=== PATIENT | male | born 1955 | race Caucasian/White ===

== ENCOUNTER 2021-02-14 12:04 | Inpatient (IN) | payer MEDICARE, OTHER ==
[2021-02-14 18:26] VITALS: BMI 28.2
[2021-02-14 20:13] LABS: Anion Gap 12 mmol/L (10-20); BUN (Urea Nitrogen) 14 mg/dL (8.4-25.7); Calc. Creatinine Clearance 107 mL/min (70-130); Calcium 8.7 mg/dL (7.8-10.44); Carbon Dioxide 24 mmol/L (23-31); Chloride 90 mmol/L (98-107); Glucose 162 mg/dL (80-115); Potassium 3.9 mmol/L (3.5-5.1); Sodium 122 mmol/L (136-145)
[2021-02-14] MEDS ORDERED: Ondansetron ODT 4 MG TAB PO PRN (23:09)
[2021-02-14] MEDS ORDERED: Acetaminophen 650 MG Suppository PR PRN (23:09)
[2021-02-14] MEDS ORDERED: Ondansetron PF 4 MG/2 ML Vial IVP PRN (23:09)
[2021-02-14] MEDS ORDERED: Acetaminophen 325 MG TAB PO PRN (23:09)
[2021-02-14] MEDS ORDERED: Enoxaparin Sodium 40 MG/0.4 ML SYRINGE SC SCH (23:59)
[2021-02-15 01:35] LABS: Lactic Acid 1.3 mmol/L (0.5-2.2)
[2021-02-15 01:38] LABS: Anion Gap 12 mmol/L (10-20); BUN (Urea Nitrogen) 17 mg/dL (8.4-25.7); Calc. Creatinine Clearance 112 mL/min (70-130); Carbon Dioxide 22 mmol/L (23-31); Chloride 89 mmol/L (98-107); Glucose 134 mg/dL (80-115)
[2021-02-15 01:48] LABS: Sodium 119 mmol/L (136-145)
[2021-02-15 05:19] LABS: #Eosinphils 0.1 thou/uL (0.0-0.7); #Monocytes 1.1 thou/uL (0.11-0.59); #Neutrophils 8.3 thou/uL (1.40-6.50); %Basophils 0.1 % (0.0-1.0); %Eosinophils 0.7 % (0.0-10.0); %Lymphocytes 9.8 % (21.0-51.0); %Neutrophils 79.4 % (42.0-75.0); Hemoglobin 15.6 g/dL (14.0-18.0); Mean Corpuscular HGB CONC 34.7 g/dL (32.0-36.0); Mean Corpuscular Volume 89.4 fL (78.0-98.0); Mean Platelet Volume 6.8 fL (7.4-10.4); Platelet Count 259 thou/uL (130-400); RBC Distribution Width 12.3 % (11.5-14.5); Red Blood Cell (RBC) Count 5.04 mill/uL (4.70-6.10); White Blood Cell (WBC) Count 10.5 thou/uL (4.8-10.8)
[2021-02-15 05:36] LABS: Anion Gap 13 mmol/L (10-20); BUN (Urea Nitrogen) 18 mg/dL (8.4-25.7); Calc. Creatinine Clearance 112 mL/min (70-130); Calcium 8.3 mg/dL (7.8-10.44); Carbon Dioxide 22 mmol/L (23-31); Chloride 90 mmol/L (98-107); Glucose 130 mg/dL (80-115); Potassium 3.9 mmol/L (3.5-5.1); Sodium 121 mmol/L (136-145)
[2021-02-15] MEDS: Enoxaparin Sodium 40 MG/0.4 ML SYRINGE SC SCH ×2 (08:06→19:43)
[2021-02-15] MEDS: Zinc Sulfate 220 MG CAP PO SCH (08:06)
[2021-02-15] MEDS: Dexamethasone 4 mg/ml Vial SLOW IVP SCH (08:06)
[2021-02-15] MEDS: Ascorbic Acid 500 mg Chewable Tablet PO SCH (08:06)
[2021-02-15] MEDS: Cholecalciferol (Vitamin D3) 400 UNITS TAB PO SCH (08:06)
[2021-02-15] MEDS ORDERED: Sodium Chloride 3% 100 ML IVPB SCH (09:00)
[2021-02-15] MEDS: Sodium Chloride 1 GM TAB PO SCH ×3 (09:19→21:30)
[2021-02-15] MEDS ORDERED: REMDESIVIR 200 MG in Sodium Chloride 0.9% 250 ML 210 ML IV SCH (10:00)
[2021-02-15] MEDS ORDERED: hydrALAZINE 20 MG/ML VIAL SLOW IVP PRN (10:36)
[2021-02-15 17:48] LABS: Bilirubin Negative (Negative); Blood, Urine Negative (Negative); Clarity Clear (Clear); Glucose, Urine (Dipstick) Normal (Negative); Ketone, Urine Negative (Negative); Leukocyte Negative Leu/uL (Negative); Nitrite Negative (Negative); Protein, Urine (Dipstick) Negative (Neg-Trace); RBC/HPF 0-3 HPF (0-3); Specific Gravity, Urine 1.013 (1.002-1.036); Squamous Epithelial None Seen HPF (0-3); Urobilinogen Normal mg/dL (Less than 2); WBC/HPF 0-3 HPF (0-3); pH, Urine 6.5 (5.0-9.0)
[2021-02-15 17:51] LABS: Bacteria/HPF 1+ HPF (None Seen)
[2021-02-15 18:13] LABS: Anion Gap 11 mmol/L (10-20); BUN (Urea Nitrogen) 21 mg/dL (8.4-25.7); Calc. Creatinine Clearance 105 mL/min (70-130); Calcium 8.7 mg/dL (7.8-10.44); Carbon Dioxide 27 mmol/L (23-31); Chloride 92 mmol/L (98-107); Glucose 120 mg/dL (80-115); Potassium 4.2 mmol/L (3.5-5.1); Sodium 126 mmol/L (136-145)
[2021-02-16] MEDS: Sodium Chloride 1 GM TAB PO SCH ×3 (08:09→21:06)
[2021-02-16] MEDS: Ascorbic Acid 500 mg Chewable Tablet PO SCH (08:09)
[2021-02-16] MEDS: Dexamethasone 4 mg/ml Vial SLOW IVP SCH (08:09)
[2021-02-16] MEDS: Zinc Sulfate 220 MG CAP PO SCH (08:09)
[2021-02-16] MEDS: Cholecalciferol (Vitamin D3) 400 UNITS TAB PO SCH (08:09)
[2021-02-16] MEDS: Enoxaparin Sodium 40 MG/0.4 ML SYRINGE SC SCH ×2 (08:09→21:05)
[2021-02-16] MEDS: REMDESIVIR 100 MG in Sodium Chloride 0.9% 250 ML 230 ML IV SCH (08:36)
[2021-02-16 09:48] LABS: Anion Gap 14 mmol/L (10-20); BUN (Urea Nitrogen) 21 mg/dL (8.4-25.7); Calc. Creatinine Clearance 103 mL/min (70-130); Calcium 8.2 mg/dL (7.8-10.44); Carbon Dioxide 28 mmol/L (23-31); Chloride 93 mmol/L (98-107); Glucose 103 mg/dL (80-115); Potassium 3.7 mmol/L (3.5-5.1); Sodium 131 mmol/L (136-145)
[2021-02-17 06:01] LABS: Anion Gap 9 mmol/L (10-20); BUN (Urea Nitrogen) 21 mg/dL (8.4-25.7); Calc. Creatinine Clearance 108 mL/min (70-130); Carbon Dioxide 28 mmol/L (23-31); Chloride 98 mmol/L (98-107); Glucose 92 mg/dL (80-115); Potassium 3.9 mmol/L (3.5-5.1); Sodium 131 mmol/L (136-145)
[2021-02-17] MEDS: Zinc Sulfate 220 MG CAP PO SCH (08:29)
[2021-02-17] MEDS: Sodium Chloride 1 GM TAB PO SCH ×3 (08:29→21:38)
[2021-02-17] MEDS: Ascorbic Acid 500 mg Chewable Tablet PO SCH (08:29)
[2021-02-17] MEDS: Enoxaparin Sodium 40 MG/0.4 ML SYRINGE SC SCH ×2 (08:29→21:38)
[2021-02-17] MEDS: Dexamethasone 4 mg/ml Vial SLOW IVP SCH (08:30)
[2021-02-17] MEDS: REMDESIVIR 100 MG in Sodium Chloride 0.9% 250 ML 230 ML IV SCH (08:30)
[2021-02-17] MEDS: Cholecalciferol (Vitamin D3) 400 UNITS TAB PO SCH (08:30)
[2021-02-18 05:35] LABS: Anion Gap 10 mmol/L (10-20); BUN (Urea Nitrogen) 16 mg/dL (8.4-25.7); Calc. Creatinine Clearance 114 mL/min (70-130); Calcium 8.3 mg/dL (7.8-10.44); Carbon Dioxide 28 mmol/L (23-31); Chloride 99 mmol/L (98-107); Glucose 92 mg/dL (80-115); Potassium 3.9 mmol/L (3.5-5.1); Sodium 133 mmol/L (136-145)
[2021-02-18] MEDS ORDERED: Lisinopril 10 MG TAB PO SCH (09:00)
[2021-02-18] MEDS: Zinc Sulfate 220 MG CAP PO SCH (09:57)
[2021-02-18] MEDS: Cholecalciferol (Vitamin D3) 400 UNITS TAB PO SCH (09:57)
[2021-02-18] MEDS: Sodium Chloride 1 GM TAB PO SCH ×3 (09:57→20:08)
[2021-02-18] MEDS: Ascorbic Acid 500 mg Chewable Tablet PO SCH (09:57)
[2021-02-18] MEDS: REMDESIVIR 100 MG in Sodium Chloride 0.9% 250 ML 230 ML IV SCH (09:58)
[2021-02-18] MEDS: Enoxaparin Sodium 40 MG/0.4 ML SYRINGE SC SCH ×2 (09:58→20:08)
[2021-02-18] MEDS: Dexamethasone 4 mg/ml Vial SLOW IVP SCH (09:58)
[2021-02-19 05:03] LABS: Anion Gap 11 mmol/L (10-20); BUN (Urea Nitrogen) 17 mg/dL (8.4-25.7); Calc. Creatinine Clearance 110 mL/min (70-130); Calcium 8.1 mg/dL (7.8-10.44); Carbon Dioxide 26 mmol/L (23-31); Chloride 100 mmol/L (98-107); Glucose 132 mg/dL (80-115); Potassium 3.9 mmol/L (3.5-5.1); Sodium 133 mmol/L (136-145)
[2021-02-19] MEDS: Cholecalciferol (Vitamin D3) 400 UNITS TAB PO SCH (09:57)
[2021-02-19] MEDS: Dexamethasone 4 mg/ml Vial SLOW IVP SCH (09:57)
[2021-02-19] MEDS: Ascorbic Acid 500 mg Chewable Tablet PO SCH (09:58)
[2021-02-19] MEDS: Sodium Chloride 1 GM TAB PO SCH ×3 (09:58→20:59)
[2021-02-19] MEDS: Lisinopril 10 MG TAB PO SCH (09:58)
[2021-02-19] MEDS: REMDESIVIR 100 MG in Sodium Chloride 0.9% 250 ML 230 ML IV SCH (09:58)
[2021-02-19] MEDS: Enoxaparin Sodium 40 MG/0.4 ML SYRINGE SC SCH ×2 (09:58→20:59)
[2021-02-19] MEDS: Zinc Sulfate 220 MG CAP PO SCH (09:59)
[2021-02-20 05:32] LABS: Anion Gap 11 mmol/L (10-20); BUN (Urea Nitrogen) 22 mg/dL (8.4-25.7); Calc. Creatinine Clearance 114 mL/min (70-130); Calcium 8.7 mg/dL (7.8-10.44); Carbon Dioxide 28 mmol/L (23-31); Chloride 101 mmol/L (98-107); Glucose 96 mg/dL (80-115); Potassium 4.5 mmol/L (3.5-5.1); Sodium 135 mmol/L (136-145)
[2021-02-20] MEDS: Cholecalciferol (Vitamin D3) 400 UNITS TAB PO SCH (08:46)
[2021-02-20] MEDS: Zinc Sulfate 220 MG CAP PO SCH (08:46)
[2021-02-20] MEDS: Ascorbic Acid 500 mg Chewable Tablet PO SCH (08:46)
[2021-02-20] MEDS: Enoxaparin Sodium 40 MG/0.4 ML SYRINGE SC SCH (08:48)
[2021-02-20] MEDS: Sodium Chloride 1 GM TAB PO SCH ×3 (08:48→21:46)
[2021-02-20] MEDS: Lisinopril 10 MG TAB PO SCH (08:49)
[2021-02-20] MEDS: Dexamethasone 4 mg/ml Vial SLOW IVP SCH (08:51)
[2021-02-20] MEDS ORDERED: Pharmacy to Dose BARICITINIB IVPB PRN (13:48)
[2021-02-21] MEDS: Lisinopril 10 MG TAB PO SCH (08:38)
[2021-02-21] MEDS: Ascorbic Acid 500 mg Chewable Tablet PO SCH (08:39)
[2021-02-21] MEDS: Zinc Sulfate 220 MG CAP PO SCH (08:39)
[2021-02-21] MEDS: Enoxaparin Sodium 40 MG/0.4 ML SYRINGE SC SCH (08:40)
[2021-02-21] MEDS: Sodium Chloride 1 GM TAB PO SCH ×3 (08:40→20:45)
[2021-02-21] MEDS: Dexamethasone 4 mg/ml Vial SLOW IVP SCH (08:40)
[2021-02-21] MEDS: Cholecalciferol (Vitamin D3) 400 UNITS TAB PO SCH (08:42)
[2021-02-21 12:49] LABS: Anion Gap 12 mmol/L (10-20); BUN (Urea Nitrogen) 19 mg/dL (8.4-25.7); Calc. Creatinine Clearance 118 mL/min (70-130); Calcium 8.9 mg/dL (7.8-10.44); Carbon Dioxide 24 mmol/L (23-31); Chloride 103 mmol/L (98-107); Glucose 80 mg/dL (80-115); Potassium 4.4 mmol/L (3.5-5.1); Sodium 135 mmol/L (136-145)
[2021-02-22] MEDS: Lisinopril 10 MG TAB PO SCH (09:10)
[2021-02-22] MEDS: Cholecalciferol (Vitamin D3) 400 UNITS TAB PO SCH (09:11)
[2021-02-22] MEDS: Sodium Chloride 1 GM TAB PO SCH ×3 (09:11→21:04)
[2021-02-22] MEDS: Ascorbic Acid 500 mg Chewable Tablet PO SCH (09:11)
[2021-02-22] MEDS: Zinc Sulfate 220 MG CAP PO SCH (09:12)
[2021-02-22] MEDS: Enoxaparin Sodium 40 MG/0.4 ML SYRINGE SC SCH (09:12)
[2021-02-22] MEDS: Dexamethasone 4 mg/ml Vial SLOW IVP SCH (09:12)
[2021-02-23] MEDS: Ascorbic Acid 500 mg Chewable Tablet PO SCH (09:36)
[2021-02-23] MEDS: Enoxaparin Sodium 40 MG/0.4 ML SYRINGE SC SCH (09:36)
[2021-02-23] MEDS: Cholecalciferol (Vitamin D3) 400 UNITS TAB PO SCH (09:36)
[2021-02-23] MEDS: Lisinopril 10 MG TAB PO SCH (09:37)
[2021-02-23] MEDS: Zinc Sulfate 220 MG CAP PO SCH (09:37)
[2021-02-23] MEDS: Sodium Chloride 1 GM TAB PO SCH ×2 (09:38→16:06)
[2021-02-23] MEDS: Dexamethasone 4 mg/ml Vial SLOW IVP SCH (09:40)
[2021-02-23 19:22] VITALS: BP 146/79; TEMP 98.1
== END 2021-02-23 20:25 | disposition home or self-care (01) | DRG 177 ==
LOC: 2SW 12:04
PROVIDERS: ADMIT Family Medicine; ATTEND Internal Medicine
PROC: 8E0ZXY6 Isolation (ICD-10-PCS; principal; 2021-02-14)
PROC: XW033E5 Introduction of Remdesivir Anti-infective into Peripheral Vein, Percutaneous Approach, New Technology Group 5 (ICD-10-PCS; 2021-02-14)
PROC: 5A0955A Assistance with Respiratory Ventilation, Greater than 96 Consecutive Hours, High Flow/Velocity Cannula (ICD-10-PCS; 2021-02-14)
DX: U07.1 COVID-19 (principal); J96.01 Acute respiratory failure with hypoxia; J12.82 Pneumonia due to coronavirus disease 2019; E22.2 Syndrome of inappropriate secretion of antidiuretic hormone; I10 Essential (primary) hypertension; Z88.0 Allergy status to penicillin; Z91.013 Allergy to seafood
CPT/HCPCS: 36415; 36416; 80048; 81001; 82728; 83605; 83880; 83930; 83935; 84300; 84443; 85025; 85379; 86140; J1100; J1650; J7050; J7131

== ENCOUNTER 2022-08-16 08:35 | Day surgery (SDC) | payer MEDICARE, OTHER ==
[2022-08-15 11:35] VITALS: BMI 25.7
[2022-08-16] MEDS ORDERED: Lidocaine 2% PF 5 ML VIAL ONE ×2 (09:13→09:15)
[2022-08-16] MEDS ORDERED: EPINEPHrine 1 MG/ML AMP ONE (09:13)
[2022-08-16] MEDS ORDERED: Chlorhexidine Gluconate 15 ML UDCUP SSP ONE (09:13)
[2022-08-16] MEDS ORDERED: Hydrocortisone 1% Cream 30 GM TUBE ONE (09:13)
[2022-08-16] MEDS ORDERED: Bupivacaine HCl 0.5%/Epinephrine 1:200,000/PF 30 ml Vial ONE (09:13)
[2022-08-16] MEDS ORDERED: Lidocaine 1% (PF) 30 ML VIAL ONE (09:13)
[2022-08-16] MEDS ORDERED: Lidocaine 1% MPF 2 ML VIAL ONE (09:15)
[2022-08-16] MEDS ORDERED: Ketamine 50 MG/ML (10ML VIAL) ONE (09:18)
[2022-08-16] MEDS ORDERED: Dexmedetomidine 200 MCG/2 ML VIAL ONE (09:19)
[2022-08-16] MEDS ORDERED: Oxymetazoline HCl 0.05% (30 ML BOT) ONE (09:19)
[2022-08-16] MEDS ORDERED: Lidocaine Viscous Sol 2% 15 ml UD Cup ONE (09:19)
[2022-08-16] MEDS ORDERED: Fentanyl 250 MCG/5 ML VIAL ONE (09:21)
[2022-08-16] MEDS ORDERED: Midazolam HCl 5 mg/5 ml Vial ONE (09:21)
[2022-08-16] MEDS ORDERED: Ketorolac Tromethamine 30 MG/ML VIAL ONE (09:28)
[2022-08-16] MEDS ORDERED: Acetaminophen 500 MG TAB ONE (09:28)
[2022-08-16] MEDS ORDERED: SUGAMMADEX SODIUM 200 MG/2 ML VIAL ONE (09:35)
[2022-08-16] MEDS ORDERED: Midazolam HCl 2 mg/2 ml Vial ONE (09:35)
[2022-08-16 09:36] LABS: #Eosinphils 0.6 thou/uL (0.0-0.7); #Lymphocytes 1.7 thou/uL (1.20-3.40); #Monocytes 0.6 thou/uL (0.11-0.59); #Neutrophils 6.2 thou/uL (1.40-6.50); %Basophils 0.4 % (0.0-1.0); %Eosinophils 6.5 % (0.0-10.0); %Lymphocytes 18.9 % (21.0-51.0); %Monocytes 6.5 % (0.0-10.0); %Neutrophils 67.7 % (42.0-75.0); Hemoglobin 14.8 g/dL (14.0-18.0); Mean Corpuscular HGB CONC 32.8 g/dL (32.0-36.0); Mean Corpuscular Hemoglobin 31.3 pg (27.0-31.0); Mean Corpuscular Volume 95.3 fl (78.0-98.0); Mean Platelet Volume 6.2 fL (7.4-10.4); Platelet Count 280 10x3/uL (130-400); RBC Distribution Width 12.2 % (11.5-14.5); Red Blood Cell (RBC) Count 4.73 mill/uL (4.70-6.10); White Blood Cell (WBC) Count 9.2 10x3/uL (4.8-10.8)
[2022-08-16] MEDS ORDERED: Dexamethasone 4 mg/ml Vial ONE (09:41)
[2022-08-16] MEDS ORDERED: Levofloxacin 500 mg/D5W 100 ml Premix Bag ONE (09:45)
[2022-08-16 09:53] LABS: Anion Gap 16 mmol/L (10-20); BUN (Urea Nitrogen) 17 mg/dL (8.4-25.7); Calc. Creatinine Clearance 87 mL/min (70-130); Calcium 9.6 mg/dL (7.8-10.44); Carbon Dioxide 24 mmol/L (23-31); Chloride 99 mmol/L (98-107); Estimated GFR 87; Glucose 88 mg/dL (80-115); Potassium 3.7 mmol/L (3.5-5.1); Sodium 135 mmol/L (136-145)
[2022-08-16] MEDS ORDERED: Glycopyrrolate 0.2 MG/ML 5 ML SYRINGE ONE (09:55)
[2022-08-16] MEDS ORDERED: Esmolol 100 MG/10 ML VIAL ONE (09:55)
[2022-08-16] MEDS ORDERED: PHENYLEPHRINE-NS 100 MCG/ML 10 ML SYRINGE ONE (09:55)
[2022-08-16] MEDS ORDERED: Rocuronium Bromide 10 MG/ML (10ML VIAL) ONE (09:55)
[2022-08-16] MEDS ORDERED: Ondansetron PF 4 MG/2 ML Vial ONE (09:55)
[2022-08-16] MEDS ORDERED: PROPOFOL 200 MG/20 ML VIAL ONE (09:55)
[2022-08-16] MEDS ORDERED: Lidocaine 1% PF 5 ML VIAL ONE (09:55)
[2022-08-16] MEDS ORDERED: Bupivacaine PF 0.5% 30 ML VIAL ONE (10:36)
[2022-08-16] MEDS ORDERED: Bupivacaine 0.25% HCL 30 ML VIAL ONE (10:36)
[2022-08-16] MEDS ORDERED: fentaNYL PF 100 MCG/2 ML SYRINGE ONE (13:16)
== END 2022-08-16 16:49 | disposition home or self-care (01) ==
LOC: SDC 08:35
PROVIDERS: ATTEND Dentist Oral and Maxillofacial Surgery
PROC: 0JH60WZ Insertion of Totally Implantable Vascular Access Device into Chest Subcutaneous Tissue and Fascia, Open Approach (ICD-10-PCS; principal; 2022-08-16)
PROC: 02HV33Z Insertion of Infusion Device into Superior Vena Cava, Percutaneous Approach (ICD-10-PCS; 2022-08-16)
PROC: 0DH63UZ Insertion of Feeding Device into Stomach, Percutaneous Approach (ICD-10-PCS; 2022-08-16)
PROC: 0NQV0ZZ Repair Left Mandible, Open Approach (ICD-10-PCS; 2022-08-16)
PROC: 0NQR0ZZ Repair Maxilla, Open Approach (ICD-10-PCS; 2022-08-16)
PROC: 0NQT0ZZ Repair Right Mandible, Open Approach (ICD-10-PCS; 2022-08-16)
PROC: 0CDXXZ1 Extraction of Lower Tooth, Multiple, External Approach (ICD-10-PCS; 2022-08-16)
PROC: 0CDWXZ1 Extraction of Upper Tooth, Multiple, External Approach (ICD-10-PCS; 2022-08-16)
DX: C01 Malignant neoplasm of base of tongue (principal); K02.9 Dental caries, unspecified; I10 Essential (primary) hypertension; Z87.891 Personal history of nicotine dependence; Z79.899 Other long term (current) drug therapy; Z88.0 Allergy status to penicillin; Z88.8 Allergy status to other drugs, medicaments and biological substances; Z91.013 Allergy to seafood; Z91.018 Allergy to other foods; Z91.040 Latex allergy status
CPT/HCPCS: 36561; 41874 ×4; 41899; 43246; 71045; 80048; 85025; 86850; 86900; 86901; C1788; J0171; J1100; J1642; J1885; J1956; J2001; J2250; J2405; J2704; J3010; S0020

== ENCOUNTER 2022-08-18 10:15 | Outpatient (CLI) | payer MEDICARE, OTHER | END 2022-08-18 10:16 | disposition home or self-care (01) | LOC: PET 10:15 | PROVIDERS: ATTEND Internal Medicine Hematology & Oncology | DX: C01 Malignant neoplasm of base of tongue (principal); I89.9 Noninfective disorder of lymphatic vessels and lymph nodes, unspecified | CPT/HCPCS: 78815; A9552 ==

== ENCOUNTER 2022-08-20 17:23 | Emergency (ER) | payer MEDICARE, OTHER ==
[~2022-08-20 17:23] MED LIST: Iopamidol-370 76% 500 ML 1 ML ONE
[2022-08-20] MEDS ORDERED: Dexamethasone 10 MG/ML VIAL ONE (18:55)
[2022-08-20] MEDS ORDERED: Hydrocodone-Acetamin 15 ML UDCUP ONE (20:26)
[2022-08-20 21:03] LABS: #Eosinphils 0.5 thou/uL (0.0-0.7); #Monocytes 0.3 thou/uL (0.11-0.59); #Neutrophils 7.5 thou/uL (1.40-6.50); %Basophils 0.4 % (0.0-1.0); %Monocytes 3.3 % (0.0-10.0); %Neutrophils 80.3 % (42.0-75.0); Hemoglobin 14.2 g/dL (14.0-18.0); Mean Corpuscular HGB CONC 33.4 g/dL (32.0-36.0); Mean Corpuscular Hemoglobin 31.6 pg (27.0-31.0); Mean Corpuscular Volume 94.6 fl (78.0-98.0); Mean Platelet Volume 6.5 fL (7.4-10.4); Platelet Count 304 10x3/uL (130-400); Red Blood Cell (RBC) Count 4.49 mill/uL (4.70-6.10); White Blood Cell (WBC) Count 9.3 10x3/uL (4.8-10.8)
[2022-08-20 21:12] LABS: PTT 28.2 sec (22.9-36.1); Prothrombin Time 13.4 sec (12.0-14.7)
[2022-08-20 21:25] LABS: ALT (SGPT) 18 U/L (8-55); AST (SGOT) 19 U/L (5-34); Albumin 4.2 g/dL (3.4-4.8); Alkaline Phosphatase 70 U/L (40-110); Anion Gap 7 mmol/L (10-20); BUN (Urea Nitrogen) 12 mg/dL (8.4-25.7); Bilirubin, Total 0.9 mg/dL (0.2-1.2); Calc. Creatinine Clearance 0 mL/min (70-130); Calcium 10.1 mg/dL (7.8-10.44); Carbon Dioxide 31 mmol/L (23-31); Chloride 101 mmol/L (98-107); Estimated GFR 95; Glucose 156 mg/dL (80-115); Protein, Total 7.2 g/dL (5.8-8.1); Sodium 135 mmol/L (136-145)
== END 2022-08-20 22:50 | disposition home or self-care (01) ==
LOC: ERS 17:23
DX: K14.9 Disease of tongue, unspecified (principal); R13.10 Dysphagia, unspecified; I10 Essential (primary) hypertension
CPT/HCPCS: 70491; 80053; 85025; 85610; 85730; J1100; Q9967

== ENCOUNTER 2022-08-24 12:02 | Inpatient (IN) | payer MEDICARE, OTHER ==
[2022-08-24] MEDS ORDERED: Oxymetazoline HCl 0.05% (30 ML BOT) ONE (13:51)
[2022-08-24] MEDS ORDERED: Benzocaine 20% Spray 60 ML CAN ONE (13:53)
[2022-08-24] MEDS ORDERED: Dexamethasone 10 MG/ML VIAL ONE (15:08)
[2022-08-24 15:33] LABS: #Eosinphils 0.1 thou/uL (0.0-0.7); #Lymphocytes 1.1 thou/uL (1.20-3.40); #Monocytes 0.2 thou/uL (0.11-0.59); #Neutrophils 7.1 thou/uL (1.40-6.50); %Eosinophils 0.7 % (0.0-10.0); %Lymphocytes 12.6 % (21.0-51.0); %Monocytes 2.6 % (0.0-10.0); %Neutrophils 84.1 % (42.0-75.0); Mean Corpuscular HGB CONC 33.4 g/dL (32.0-36.0); Mean Corpuscular Hemoglobin 31.6 pg (27.0-31.0); Mean Corpuscular Volume 94.6 fl (78.0-98.0); Mean Platelet Volume 6.7 fL (7.4-10.4); Platelet Count 292 10x3/uL (130-400); RBC Distribution Width 12.2 % (11.5-14.5); Red Blood Cell (RBC) Count 4.44 mill/uL (4.70-6.10); White Blood Cell (WBC) Count 8.4 10x3/uL (4.8-10.8)
[2022-08-24] MEDS ORDERED: Ondansetron PF 4 MG/2 ML Vial IVP PRN (15:43)
[2022-08-24] MEDS ORDERED: Ondansetron ODT 4 MG TAB PO PRN (15:43)
[2022-08-24 15:45] LABS: INR-International Normal Ratio 0.9; PTT 26.1 sec (22.9-36.1); Prothrombin Time 12.9 sec (12.0-14.7)
[2022-08-24 16:05] LABS: ALT (SGPT) 13 U/L (8-55); AST (SGOT) 15 U/L (5-34); Albumin 3.7 g/dL (3.4-4.8); Alkaline Phosphatase 71 U/L (40-110); Anion Gap 14 mmol/L (10-20); BUN (Urea Nitrogen) 21 mg/dL (8.4-25.7); Calc. Creatinine Clearance 0 mL/min (70-130); Calcium 8.9 mg/dL (7.8-10.44); Carbon Dioxide 21 mmol/L (23-31); Chloride 100 mmol/L (98-107); Estimated GFR 94; Globulin 2.7 g/dL (2.4-3.5); Glucose 111 mg/dL (80-115); Potassium 4.1 mmol/L (3.5-5.1); Protein, Total 6.4 g/dL (5.8-8.1); Sodium 131 mmol/L (136-145)
[2022-08-24] MEDS: D5 1/2 NS w/20 mEq KCL 1,000 ML IV SCH (17:45)
[2022-08-24] MEDS ORDERED: Electrolyte Replacement Protocol 1 EACH FS PRN (18:45)
[2022-08-24] MEDS: Acetaminophen 325 MG TAB PO PRN (21:10)
[2022-08-25] MEDS: D5 1/2 NS w/20 mEq KCL 1,000 ML IV SCH ×2 (01:41→09:02)
[2022-08-25 07:31] LABS: #Monocytes 0.2 thou/uL (0.11-0.59); #Neutrophils 6.7 thou/uL (1.40-6.50); %Basophils 0.1 % (0.0-1.0); %Eosinophils 0.1 % (0.0-10.0); %Lymphocytes 12.2 % (21.0-51.0); %Monocytes 2.2 % (0.0-10.0); %Neutrophils 85.5 % (42.0-75.0); Hemoglobin 14.7 g/dL (14.0-18.0); Mean Corpuscular HGB CONC 33.7 g/dL (32.0-36.0); Mean Corpuscular Hemoglobin 31.8 pg (27.0-31.0); Mean Corpuscular Volume 94.2 fl (78.0-98.0); Mean Platelet Volume 7.1 fL (7.4-10.4); Platelet Count 338 10x3/uL (130-400); RBC Distribution Width 12.1 % (11.5-14.5); Red Blood Cell (RBC) Count 4.62 mill/uL (4.70-6.10); White Blood Cell (WBC) Count 7.8 10x3/uL (4.8-10.8)
[2022-08-25 07:51] LABS: ALT (SGPT) 19 U/L (8-55); AST (SGOT) 19 U/L (5-34); Albumin 4.2 g/dL (3.4-4.8); Alkaline Phosphatase 71 U/L (40-110); Anion Gap 16 mmol/L (10-20); BUN (Urea Nitrogen) 22 mg/dL (8.4-25.7); Bilirubin, Total 1.1 mg/dL (0.2-1.2); Calc. Creatinine Clearance 95 mL/min (70-130); Calcium 9.1 mg/dL (7.8-10.44); Carbon Dioxide 20 mmol/L (23-31); Chloride 101 mmol/L (98-107); Estimated GFR 93; Glucose 121 mg/dL (80-115); Magnesium 2.2 mg/dL (1.6-2.6); Phosphorus 2.7 mg/dL (2.3-4.7); Potassium 4.6 mmol/L (3.5-5.1); Protein, Total 7.2 g/dL (5.8-8.1); Sodium 132 mmol/L (136-145)
[2022-08-25] MEDS: Dextrose 5 %-0.45 % NaCl 1,000 ML IV SCH ×2 (09:20→20:33)
[2022-08-25] MEDS: Lisinopril/Hydrochlorothiazide 20/25 mg Tablet PO SCH (09:21)
[2022-08-25] MEDS ORDERED: Famotidine/PF 20 mg/2ml Vial SLOW IVP SCH ×2 (10:30→21:00)
[2022-08-25] MEDS ORDERED: fentaNYL PF 100 MCG/2 ML SYRINGE ONE (14:23)
[2022-08-25] MEDS ORDERED: Lidocaine 1% (PF) 30 ML VIAL ONE (14:38)
[2022-08-25] MEDS ORDERED: EPINEPHrine 1 MG/ML AMP ONE (14:38)
[2022-08-25] MEDS ORDERED: Lidocaine 1% PF 5 ML VIAL ONE (14:52)
[2022-08-25] MEDS ORDERED: PROPOFOL 200 MG/20 ML VIAL ONE (14:52)
[2022-08-25] MEDS ORDERED: PHENYLEPHRINE-NS 100 MCG/ML 10 ML SYRINGE ONE (14:52)
[2022-08-25] MEDS ORDERED: ePHEDrine 50 MG/ML VIAL ONE (14:52)
[2022-08-25] MEDS ORDERED: Succinylcholine Chloride 100 MG/5 ML SYRINGE FS ONE (14:52)
[2022-08-25] MEDS ORDERED: Ondansetron PF 4 MG/2 ML Vial ONE (14:52)
[2022-08-25] MEDS ORDERED: Midazolam HCl 2 mg/2 ml Vial ONE (15:29)
[2022-08-25] MEDS ORDERED: Lansoprazole 15 MG/5 ML (BATCHED)UDCUP PER TUBE SCH (19:00)
[2022-08-25] MEDS: Acetaminophen 325 MG TAB PO PRN (20:30)
[2022-08-26 07:32] LABS: #Basophils 0.1 thou/uL (0.0-0.2); #Eosinphils 0.2 thou/uL (0.0-0.7); #Lymphocytes 1.8 thou/uL (1.20-3.40); #Monocytes 0.1 thou/uL (0.11-0.59); #Neutrophils 11.8 thou/uL (1.40-6.50); %Basophils 0.4 % (0.0-1.0); %Eosinophils 1.3 % (0.0-10.0); %Lymphocytes 12.7 % (21.0-51.0); %Monocytes 0.5 % (0.0-10.0); %Neutrophils 85.1 % (42.0-75.0); Hemoglobin 14.7 g/dL (14.0-18.0); Mean Corpuscular HGB CONC 33.7 g/dL (32.0-36.0); Mean Corpuscular Hemoglobin 32.1 pg (27.0-31.0); Mean Corpuscular Volume 95.1 fl (78.0-98.0); Mean Platelet Volume 7.4 fL (7.4-10.4); Platelet Count 256 10x3/uL (130-400); RBC Distribution Width 12.2 % (11.5-14.5); White Blood Cell (WBC) Count 13.9 10x3/uL (4.8-10.8)
[2022-08-26 07:47] LABS: Anion Gap 15 mmol/L (10-20); BUN (Urea Nitrogen) 20 mg/dL (8.4-25.7); Calc. Creatinine Clearance 101 mL/min (70-130); Calcium 8.7 mg/dL (7.8-10.44); Carbon Dioxide 19 mmol/L (23-31); Chloride 97 mmol/L (98-107); Estimated GFR 95; Glucose 109 mg/dL (80-115); Potassium 4.3 mmol/L (3.5-5.1); Sodium 127 mmol/L (136-145)
[2022-08-26] MEDS ORDERED: Morphine 4 MG/ML VIAL SLOW IVP PRN (09:20)
[2022-08-26] MEDS: Polyethylene Glycol 3350 17 GM Packet PER TUBE SCH (09:52)
[2022-08-26] MEDS: Lansoprazole 15 MG/5 ML (BATCHED)UDCUP PER TUBE SCH (09:59)
[2022-08-26] MEDS ORDERED: Docusate Sodium 100 MG/10 ML UDCUP PO SCH (10:30)
[2022-08-26] MEDS: Lisinopril/Hydrochlorothiazide 20/25 mg Tablet PO SCH (11:27)
[2022-08-26] MEDS ORDERED: Lactated Ringer's 1,000 ML IV SCH (14:15)
[2022-08-26] MEDS: Acetaminophen 325 MG TAB PO PRN (19:54)
[2022-08-26] MEDS ORDERED: Lactated Ringer's 500 ML IV SCH ×2 (22:00→23:15)
[2022-08-27 04:23] LABS: Hemoglobin 12.6 g/dL (14.0-18.0); Mean Corpuscular HGB CONC 34.3 g/dL (32.0-36.0); Mean Corpuscular Hemoglobin 32.2 pg (27.0-31.0); Mean Platelet Volume 7.3 fL (7.4-10.4); Platelet Count 212 10x3/uL (130-400); RBC Distribution Width 12.1 % (11.5-14.5); Red Blood Cell (RBC) Count 3.93 mill/uL (4.70-6.10); White Blood Cell (WBC) Count 7.8 10x3/uL (4.8-10.8)
[2022-08-27 04:44] LABS: Anion Gap 12 mmol/L (10-20); BUN (Urea Nitrogen) 20 mg/dL (8.4-25.7); Calc. Creatinine Clearance 117 mL/min (70-130); Calcium 8.4 mg/dL (7.8-10.44); Carbon Dioxide 24 mmol/L (23-31); Chloride 97 mmol/L (98-107); Estimated GFR 99; Glucose 102 mg/dL (80-115); Magnesium 1.8 mg/dL (1.6-2.6); Potassium 4.1 mmol/L (3.5-5.1); Sodium 129 mmol/L (136-145)
[2022-08-27] MEDS ORDERED: Bisacodyl 10 MG SUPP PR SCH (09:15)
[2022-08-27] MEDS: Lansoprazole 15 MG/5 ML (BATCHED)UDCUP PER TUBE SCH (09:43)
[2022-08-27] MEDS: Polyethylene Glycol 3350 17 GM Packet PER TUBE SCH (09:43)
[2022-08-27] MEDS: Docusate Sodium 100 MG/10 ML UDCUP PO SCH (10:30)
[2022-08-27] MEDS ORDERED: guaiFENesin/Codeine 200 mg/20 mg 10 ml Cup PO PRN (13:40)
[2022-08-27] MEDS: Sodium Chloride 0.45% 1,000 ML IV SCH ×2 (14:00→23:12)
[2022-08-27] MEDS ORDERED: PEGFILGRASTIM-JMDB 6 MG/0.6 ML SYRINGE SQ SCH (16:00)
[2022-08-27] MEDS ORDERED: Sodium Chloride 0.9% 1,000 ML IV SCH (17:15)
[2022-08-28] MEDS ORDERED: Metoclopramide HCl 10 MG/2 ML VIAL IVP SCH ×2 (08:00→14:00)
[2022-08-28 08:19] LABS: Mean Corpuscular HGB CONC 33.7 g/dL (32.0-36.0); Mean Corpuscular Hemoglobin 31.5 pg (27.0-31.0); Mean Corpuscular Volume 93.6 fl (78.0-98.0); Platelet Count 189 10x3/uL (130-400); RBC Distribution Width 11.9 % (11.5-14.5); White Blood Cell (WBC) Count 6.6 10x3/uL (4.8-10.8)
[2022-08-28 08:35] LABS: Anion Gap 12 mmol/L (10-20); BUN (Urea Nitrogen) 24 mg/dL (8.4-25.7); Calc. Creatinine Clearance 114 mL/min (70-130); Calcium 8.2 mg/dL (7.8-10.44); Carbon Dioxide 23 mmol/L (23-31); Chloride 99 mmol/L (98-107); Estimated GFR 97; Glucose 98 mg/dL (80-115); Potassium 3.7 mmol/L (3.5-5.1); Sodium 130 mmol/L (136-145)
[2022-08-28] MEDS: Lansoprazole 15 MG/5 ML (BATCHED)UDCUP PER TUBE SCH (08:51)
[2022-08-28] MEDS: Polyethylene Glycol 3350 17 GM Packet PER TUBE SCH (09:02)
[2022-08-28] MEDS: Docusate Sodium 100 MG/10 ML UDCUP PO SCH (09:02)
[2022-08-28] MEDS ORDERED: Docusate Sodium 100 MG/10 ML UDCUP PO PRN (09:19)
[2022-08-28] MEDS ORDERED: Polyethylene Glycol 3350 17 GM Packet PER TUBE PRN (09:19)
[2022-08-28] MEDS: Sodium Chloride 0.45% 1,000 ML IV SCH ×2 (12:30→18:08)
[2022-08-29] MEDS: Sodium Chloride 0.45% 1,000 ML IV SCH ×2 (00:39→10:28)
[2022-08-29 06:07] LABS: Anion Gap 13 mmol/L (10-20); BUN (Urea Nitrogen) 17 mg/dL (8.4-25.7); Calc. Creatinine Clearance 103 mL/min (70-130); Calcium 8.3 mg/dL (7.8-10.44); Carbon Dioxide 23 mmol/L (23-31); Chloride 99 mmol/L (98-107); Estimated GFR 95; Glucose 92 mg/dL (80-115); Magnesium 1.8 mg/dL (1.6-2.6); Potassium 3.6 mmol/L (3.5-5.1); Sodium 131 mmol/L (136-145)
[2022-08-29] MEDS: Lansoprazole 15 MG/5 ML (BATCHED)UDCUP PER TUBE SCH (08:31)
[2022-08-29] MEDS ORDERED: Docusate Sodium 100 MG/10 ML UDCUP PER TUBE PRN (08:45)
[2022-08-29] MEDS ORDERED: Acetaminophen 325 MG TAB PER TUBE PRN (08:45)
[2022-08-29] MEDS: Metoprolol Tartrate 25 MG TAB PER TUBE SCH ×2 (08:48→22:13)
[2022-08-30] MEDS: Sodium Chloride 0.45% 1,000 ML IV SCH (02:09)
[2022-08-30 06:48] VITALS: BMI 26.6
[2022-08-30] MEDS ORDERED: Metoprolol Tartrate 25 MG TAB PER TUBE SCH (09:00)
[2022-08-30] MEDS: Lansoprazole 15 MG/5 ML (BATCHED)UDCUP PER TUBE SCH (10:20)
[2022-08-30 12:23] VITALS: BP 120/63; TEMP 99.1
== END 2022-08-30 14:45 | disposition home or self-care (01) | DRG 12 ==
LOC: ERS 12:02 → T4-A 17:18 → OBSVTOIN 08-25 08:43 → CCU 08-25 15:27 → 2NO 08-28 10:43
PROVIDERS: ADMIT Internal Medicine; ATTEND Internal Medicine
PROC: 0B110Z4 Bypass Trachea to Cutaneous, Open Approach (ICD-10-PCS; principal; 2022-08-25)
PROC: 0CJS8ZZ Inspection of Larynx, Via Natural or Artificial Opening Endoscopic (ICD-10-PCS; 2022-08-25)
DX: C01 Malignant neoplasm of base of tongue (principal); E87.1 Hypo-osmolality and hyponatremia; E87.20 Acidosis, unspecified; I47.20 Ventricular tachycardia, unspecified; C32.1 Malignant neoplasm of supraglottis; Z20.822 Contact with and (suspected) exposure to COVID-19; I10 Essential (primary) hypertension; F17.210 Nicotine dependence, cigarettes, uncomplicated; I25.10 Atherosclerotic heart disease of native coronary artery without angina pectoris; R13.12 Dysphagia, oropharyngeal phase; K59.00 Constipation, unspecified; I95.2 Hypotension due to drugs; T46.4X5A Adverse effect of angiotensin-converting-enzyme inhibitors, initial encounter; Z91.040 Latex allergy status; Z88.0 Allergy status to penicillin; Z91.013 Allergy to seafood; Z88.8 Allergy status to other drugs, medicaments and biological substances; Z91.018 Allergy to other foods; Z79.899 Other long term (current) drug therapy; Z93.1 Gastrostomy status
CPT/HCPCS: 36415; 71045; 74018; 80048; 80053; 83735; 84100; 85025; 85027; 85610; 85730; 93306; 94640; 96374; G0378; J0171; J1100; J1642; J1650; J2001; J2250; J2270; J2405; J2704; J3480; J3490; J7042; J7050; J7120; Q5108; S0028; U0003; U0005

== ENCOUNTER 2023-01-10 10:15 | Outpatient (CLI) | payer MEDICARE, OTHER | END 2023-01-10 10:16 | disposition home or self-care (01) | LOC: PET 10:15 | PROVIDERS: ATTEND Radiology Radiation Oncology | DX: C01 Malignant neoplasm of base of tongue (principal) | CPT/HCPCS: 78815; A9552 ==

== ENCOUNTER 2023-01-26 13:04 | Outpatient (CLI) | payer MEDICARE, OTHER ==
[2023-01-26] MEDS ORDERED: Magnevist 469MG/ML 20 ML VIAL ONE (13:46)
== END 2023-01-26 13:05 | disposition home or self-care (01) ==
LOC: MRI 13:04
PROVIDERS: ATTEND Radiology Radiation Oncology
DX: C01 Malignant neoplasm of base of tongue (principal); I65.21 Occlusion and stenosis of right carotid artery; R90.89 Other abnormal findings on diagnostic imaging of central nervous system
CPT/HCPCS: 70553; 82565

== ENCOUNTER 2023-02-11 00:30 | Emergency (ER) | payer MEDICARE, OTHER ==
[2023-02-11 01:23] LABS: #Eosinphils 0.1 thou/uL (0.0-0.7); #Monocytes 0.7 thou/uL (0.11-0.59); #Neutrophils 6.5 thou/uL (1.40-6.50); %Basophils 0.4 % (0.0-1.0); %Eosinophils 0.8 % (0.0-10.0); %Lymphocytes 8.1 % (21.0-51.0); %Monocytes 8.6 % (0.0-10.0); Hematocrit 36.7 % (42.0-52.0); Hemoglobin 12.5 g/dL (14.0-18.0); Mean Corpuscular HGB CONC 34.1 g/dL (32.0-36.0); Mean Corpuscular Hemoglobin 33.6 pg (27.0-31.0); Mean Corpuscular Volume 98.7 fl (78.0-98.0); Mean Platelet Volume 8.6 fL (7.4-10.4); Platelet Count 234 10x3/uL (130-400); RBC Distribution Width 11.8 % (11.5-14.5); Red Blood Cell (RBC) Count 3.72 mill/uL (4.70-6.10)
[2023-02-11 01:43] LABS: ALT (SGPT) 7 U/L (8-55); AST (SGOT) 12 U/L (5-34); Alkaline Phosphatase 90 U/L (40-110); Anion Gap 13 mmol/L (10-20); BUN (Urea Nitrogen) 18 mg/dL (8.4-25.7); Bilirubin, Total 0.6 mg/dL (0.2-1.2); Calc. Creatinine Clearance 0 mL/min (70-130); Calcium 10.1 mg/dL (7.8-10.44); Carbon Dioxide 29 mmol/L (23-31); Chloride 97 mmol/L (98-107); Estimated GFR 95; Glucose 108 mg/dL (80-115); Sodium 135 mmol/L (136-145)
[2023-02-11] MEDS ORDERED: Tranexamic Acid 1,000 MG/10 ML VIAL ONE (01:52)
[2023-02-11 02:10] LABS: PTT 29.8 sec (22.9-36.1); Prothrombin Time 13.5 sec (12.0-14.7)
[2023-02-11] MEDS ORDERED: Acetaminophen 500 MG TAB ONE (02:23)
== END 2023-02-11 05:24 | disposition home or self-care (01) ==
LOC: ERS 00:30
DX: J95.01 Hemorrhage from tracheostomy stoma (principal); I10 Essential (primary) hypertension; Z87.891 Personal history of nicotine dependence; Z79.899 Other long term (current) drug therapy
CPT/HCPCS: 36415; 71045; 80053; 85025; 85610; 85730; 94640

== ENCOUNTER 2023-02-22 07:47 | Day surgery (SDC) | payer MEDICARE, OTHER ==
[2023-02-21 11:04] VITALS: BMI 23.0
[2023-02-22 09:59] LABS: Hematocrit 39.9 % (42.0-52.0); Hemoglobin 13.6 g/dL (14.0-18.0)
[2023-02-22] MEDS ORDERED: EPINEPHrine 1 MG/ML AMP ONE (10:02)
[2023-02-22] MEDS ORDERED: fentaNYL PF 100 MCG/2 ML SYRINGE ONE (10:05)
[2023-02-22] MEDS ORDERED: SUGAMMADEX SODIUM 200 MG/2 ML VIAL ONE (10:07)
[2023-02-22 10:24] LABS: Anion Gap 13 mmol/L (10-20); BUN (Urea Nitrogen) 17 mg/dL (8.4-25.7); Calc. Creatinine Clearance 88 mL/min (70-130); Calcium 10.5 mg/dL (7.8-10.44); Carbon Dioxide 32 mmol/L (23-31); Chloride 94 mmol/L (98-107); Estimated GFR 94; Glucose 95 mg/dL (80-115); Sodium 135 mmol/L (136-145)
[2023-02-22] MEDS ORDERED: Rocuronium Bromide 10 MG/ML (10ML VIAL) ONE (10:44)
[2023-02-22] MEDS ORDERED: PROPOFOL 200 MG/20 ML VIAL ONE (10:44)
[2023-02-22] MEDS ORDERED: Lidocaine 1% PF 5 ML VIAL ONE (10:44)
[2023-02-22] MEDS ORDERED: Lidocaine 1% (PF) 30 ML VIAL ONE (10:48)
[2023-02-22] MEDS ORDERED: Ferric Subsulfate (ASTRINGYN) 8 GM VIAL ONE (10:57)
[2023-02-22] MEDS ORDERED: fentaNYL 50 mcg/mL 1 mL Vial ONE (11:24)
== END 2023-02-22 13:30 | disposition home or self-care (01) ==
LOC: SDC 07:47
PROVIDERS: ATTEND Otolaryngology Plastic Surgery within the Head & Neck
PROC: 0CBM8ZX Excision of Pharynx, Via Natural or Artificial Opening Endoscopic, Diagnostic (ICD-10-PCS; principal; 2023-02-22)
DX: C02.9 Malignant neoplasm of tongue, unspecified (principal); R47.02 Dysphasia; I10 Essential (primary) hypertension; I25.10 Atherosclerotic heart disease of native coronary artery without angina pectoris; R19.6 Halitosis; J34.81 Nasal mucositis (ulcerative); K14.0 Glossitis; H60.92 Unspecified otitis externa, left ear; Z93.0 Tracheostomy status; Z88.8 Allergy status to other drugs, medicaments and biological substances; Z88.0 Allergy status to penicillin; Z91.040 Latex allergy status; Z91.018 Allergy to other foods; Z79.899 Other long term (current) drug therapy
CPT/HCPCS: 31536; 80048; 85014; 85018; 93005; J3010; 88305; 93010; J0171; J2001; J2704

== ENCOUNTER 2023-03-07 09:50 | Outpatient (CLI) | payer MEDICARE, OTHER ==
[2023-03-07] MEDS ORDERED: Iopamidol 370 76% 100 ML VIAL ONE (10:30)
== END 2023-03-07 09:51 | disposition home or self-care (01) ==
LOC: CT 09:50
PROVIDERS: ATTEND Radiology Radiation Oncology
DX: C01 Malignant neoplasm of base of tongue (principal); K14.8 Other diseases of tongue; R59.0 Localized enlarged lymph nodes
CPT/HCPCS: 70491; Q9967

== ENCOUNTER 2023-03-20 20:20 | Emergency (ER) | payer MEDICARE, OTHER ==
[2023-03-20 20:42] LABS: #Eosinphils 0.1 thou/uL (0.0-0.7); #Monocytes 0.8 thou/uL (0.11-0.59); #Neutrophils 9.5 thou/uL (1.40-6.50); %Basophils 0.3 % (0.0-1.0); %Lymphocytes 6.5 % (21.0-51.0); %Monocytes 7.4 % (0.0-10.0); %Neutrophils 84.2 % (42.0-75.0); Hematocrit 35.2 % (42.0-52.0); Hemoglobin 11.9 g/dL (14.0-18.0); Mean Corpuscular HGB CONC 33.8 g/dL (32.0-36.0); Mean Corpuscular Hemoglobin 33.1 pg (27.0-31.0); Mean Corpuscular Volume 98.1 fl (78.0-98.0); Mean Platelet Volume 8.8 fL (7.4-10.4); Platelet Count 264 10x3/uL (130-400); RBC Distribution Width 12.8 % (11.5-14.5); Red Blood Cell (RBC) Count 3.59 mill/uL (4.70-6.10); White Blood Cell (WBC) Count 11.3 10x3/uL (4.8-10.8)
[2023-03-20 20:54] LABS: Prothrombin Time 13.8 sec (12.0-14.7)
[2023-03-20 20:55] LABS: PTT 31.3 sec (22.9-36.1)
[2023-03-20 21:07] LABS: ALT (SGPT) 10 U/L (8-55); AST (SGOT) 14 U/L (5-34); Albumin 3.7 g/dL (3.4-4.8); Alkaline Phosphatase 106 U/L (40-110); Anion Gap 13 mmol/L (10-20); BUN (Urea Nitrogen) 24 mg/dL (8.4-25.7); Bilirubin, Total 0.4 mg/dL (0.2-1.2); Calc. Creatinine Clearance 0 mL/min (70-130); Calcium 9.6 mg/dL (7.8-10.44); Carbon Dioxide 30 mmol/L (23-31); Chloride 92 mmol/L (98-107); Estimated GFR 94; Globulin 3.1 g/dL (2.4-3.5); Glucose 117 mg/dL (80-115); Potassium 4.5 mmol/L (3.5-5.1); Protein, Total 6.8 g/dL (5.8-8.1); Sodium 130 mmol/L (136-145)
[2023-03-20] MEDS ORDERED: Tranexamic Acid 1,000 MG/10 ML VIAL ONE (21:13)
[2023-03-20] MEDS ORDERED: Racepinephrine 2.25% 0.5 ML NEB ONE (22:21)
[2023-03-20] MEDS ORDERED: Calcium Chloride 1 GM/10 ML Abboject SYRINGE ONE (22:28)
== END 2023-03-20 22:49 | disposition short-term general hospital (02) ==
LOC: ERS 20:20
DX: K14.8 Other diseases of tongue (principal); R04.2 Hemoptysis; J95.09 Other tracheostomy complication; I10 Essential (primary) hypertension; Z87.891 Personal history of nicotine dependence; Z79.899 Other long term (current) drug therapy
CPT/HCPCS: 36430; 71045; 80053; 83605; 85025; 85610; 85730; 86850; 86900; 86901; 86920; 94640; P9016; 96374; 96375

== ENCOUNTER 2023-04-07 05:30 | Day surgery (SDC) | payer MEDICARE, OTHER ==
[2023-04-07] MEDS ORDERED: Tranexamic Acid 1,000 MG/10 ML VIAL ONE ×2 (05:33→05:41)
[2023-04-07] MEDS ORDERED: Lidocaine/Transparent Dressing 1 EACH KIT ONE (05:37)
[2023-04-07] MEDS ORDERED: Calcium Chloride 1 GM/10 ML Abboject SYRINGE ONE (05:39)
[2023-04-07] MEDS ORDERED: Benzocaine 20% Spray 60 ML CAN ONE (05:39)
[2023-04-07 05:51] LABS: #Basophils 0.1 thou/uL (0.0-0.2); #Eosinphils 0.1 thou/uL (0.0-0.7); #Monocytes 1.2 thou/uL (0.11-0.59); #Neutrophils 12.1 thou/uL (1.40-6.50); %Basophils 0.3 % (0.0-1.0); %Eosinophils 0.9 % (0.0-10.0); %Lymphocytes 7.9 % (21.0-51.0); %Monocytes 8.4 % (0.0-10.0); %Neutrophils 81.8 % (42.0-75.0); Hematocrit 29.2 % (42.0-52.0); Hemoglobin 9.4 g/dL (14.0-18.0); Mean Corpuscular HGB CONC 32.2 g/dL (32.0-36.0); Mean Corpuscular Hemoglobin 32.8 pg (27.0-31.0); Mean Corpuscular Volume 101.7 fl (78.0-98.0); Platelet Count 305 10x3/uL (130-400); RBC Distribution Width 16.8 % (11.5-14.5); Red Blood Cell (RBC) Count 2.87 mill/uL (4.70-6.10); White Blood Cell (WBC) Count 14.8 10x3/uL (4.8-10.8)
[2023-04-07] MEDS ORDERED: Albuterol 2.5 MG/0.5 ML NEB ONE (05:53)
[2023-04-07 06:16] LABS: ALT (SGPT) 8 U/L (8-55); AST (SGOT) 16 U/L (5-34); Albumin 3.8 g/dL (3.4-4.8); Alkaline Phosphatase 91 U/L (40-110); Anion Gap 16 mmol/L (10-20); BUN (Urea Nitrogen) 18 mg/dL (8.4-25.7); Bilirubin, Total 0.4 mg/dL (0.2-1.2); Calc. Creatinine Clearance 0 mL/min (70-130); Calcium 9.1 mg/dL (7.8-10.44); Carbon Dioxide 24 mmol/L (23-31); Chloride 99 mmol/L (98-107); Estimated GFR 97; Globulin 2.5 g/dL (2.4-3.5); Glucose 120 mg/dL (80-115); Potassium 3.8 mmol/L (3.5-5.1); Protein, Total 6.3 g/dL (5.8-8.1); Sodium 135 mmol/L (136-145)
[2023-04-07] MEDS ORDERED: NOREPINEPHRINE 8 MG/250 ML-D5W 250 ML IVPB PRN (06:20)
[2023-04-07] MEDS ORDERED: Acetaminophen 650 MG Suppository PR PRN (06:20)
[2023-04-07] MEDS ORDERED: Electrolyte Replacement Protocol 1 EACH IVPB SCH (06:20)
[2023-04-07] MEDS ORDERED: Ventilator Sedation Protocol 1 EACH FS SCH (06:30)
[2023-04-07] MEDS ORDERED: Morphine 2 MG/ML VIAL SLOW IVP PRN (06:30)
[2023-04-07] MEDS ORDERED: Fentanyl BOLUS 250 ML IVPB PRN (06:30)
[2023-04-07] MEDS ORDERED: Sodium Chloride 0.9% 1,000 ML IV SCH (06:30)
[2023-04-07] MEDS ORDERED: Propofol BOLUS 1,000 MG/100 ML VIAL IV PRN (06:30)
[2023-04-07] MEDS ORDERED: Fentanyl CADD 100 ML IV SCH (06:30)
[2023-04-07] MEDS ORDERED: Propofol 1,000 MG/100 ML VIAL IV PRN (06:30)
[2023-04-07] MEDS ORDERED: Lorazepam 2 MG/ML VIAL SLOW IVP PRN (06:30)
[2023-04-07] MEDS ORDERED: DISCONTINUE PREVIOUS NARCOTIC PAIN MEDICATIONS AND BENZODIAZEPINES FS SCH (06:30)
[2023-04-07] MEDS ORDERED: fentaNYL PF 100 MCG/2 ML SYRINGE ONE (06:35)
[2023-04-07] MEDS ORDERED: KETAMINE 100 MG/ML (5ML VIAL) ONE (06:35)
[2023-04-07] MEDS ORDERED: Midazolam HCl 2 mg/2 ml Vial ONE ×2 (06:35→10:17)
[2023-04-07] MEDS ORDERED: Vasopressin 20 UNITS/ML VIAL ONE (06:42)
[2023-04-07] MEDS ORDERED: PHENYLEPHRINE-NS 100 MCG/ML 10 ML SYRINGE ONE (06:57)
[2023-04-07] MEDS ORDERED: Rocuronium Bromide 10 MG/ML (10ML VIAL) ONE (06:57)
[2023-04-07] MEDS ORDERED: Vecuronium 10 MG VIAL ONE ×3 (06:57→10:59)
[2023-04-07 07:06] LABS: Prothrombin Time 13.3 sec (12.0-14.7)
[2023-04-07 07:07] LABS: PTT 24.9 sec (22.9-36.1)
[2023-04-07] MEDS ORDERED: Oxymetazoline HCl 0.05% (30 ML BOT) ONE (07:09)
[2023-04-07] MEDS ORDERED: Lidocaine 1% (PF) 30 ML VIAL ONE (07:13)
[2023-04-07] MEDS ORDERED: Heparin 10,000 UNITS/ 10 ML VIAL ONE (07:15)
[2023-04-07 07:20] LABS: #Eosinphils 0.1 thou/uL (0.0-0.7); #Monocytes 0.9 thou/uL (0.11-0.59); #Neutrophils 13.4 thou/uL (1.40-6.50); %Basophils 0.2 % (0.0-1.0); %Eosinophils 0.3 % (0.0-10.0); %Lymphocytes 2.4 % (21.0-51.0); %Monocytes 6.2 % (0.0-10.0); Hematocrit 25.9 % (42.0-52.0); Hemoglobin 8.7 g/dL (14.0-18.0); Mean Corpuscular HGB CONC 33.6 g/dL (32.0-36.0); Mean Corpuscular Hemoglobin 31.5 pg (27.0-31.0); Mean Platelet Volume 8.9 fL (7.4-10.4); RBC Distribution Width 17.7 % (11.5-14.5); Red Blood Cell (RBC) Count 2.76 mill/uL (4.70-6.10); White Blood Cell (WBC) Count 14.9 10x3/uL (4.8-10.8)
[2023-04-07 07:36] LABS: Mean Corpuscular Volume 93.8 fl (78.0-98.0); Platelet Count 192 10x3/uL (130-400)
[2023-04-07 07:53] LABS: INR-International Normal Ratio 1.1; Prothrombin Time 14.6 sec (12.0-14.7)
[2023-04-07 07:54] LABS: PTT 26.9 sec (22.9-36.1)
[2023-04-07] MEDS ORDERED: Famotidine/PF 20 mg/2ml Vial SLOW IVP SCH (09:00)
[2023-04-07] MEDS ORDERED: Iopamidol 370 76% 100 ML VIAL ONE (09:17)
[2023-04-07] MEDS ORDERED: Propofol 1,000 MG/100 ML VIAL IV ONE ×3 (09:24→10:55)
[2023-04-07] MEDS ORDERED: Ipratropium/Albuterol 3 ML NEB ONE (09:30)
[2023-04-07 09:44] LABS: Actual Bicarbonate (HCO3a) 28.7 mEq/L (22-28); Base Excess (BEa) 2.3 mEq/L (-2.0 to +3.0); CO2 Tension 54.4 mmHg (35.0-45.0); Calcium, Ionized (arterial) 1.18 mmol/L (1.12-1.30); Carboxyhemoglobin (COHb) 1.4 gm% (0.0-3.0); Hematocrit-ABG 27 % (42.0-52.0); Hemoglobin (Hb) 9.1 g/dL (14.0-18.0); Potassium - ABG Lab 4.57 mmol/L (3.70-5.30); Puncture Site ALINE
[2023-04-07 09:55] VITALS: BP 183/80
[2023-04-07 09:59] LABS: #Monocytes 0.9 thou/uL (0.11-0.59); #Neutrophils 15.1 thou/uL (1.40-6.50); %Basophils 0.2 % (0.0-1.0); %Eosinophils 0.1 % (0.0-10.0); %Lymphocytes 2.4 % (21.0-51.0); %Monocytes 5.5 % (0.0-10.0); %Neutrophils 91.2 % (42.0-75.0); Hematocrit 25.1 % (42.0-52.0); Hemoglobin 8.6 g/dL (14.0-18.0); Mean Corpuscular HGB CONC 34.3 g/dL (32.0-36.0); Mean Corpuscular Hemoglobin 31.2 pg (27.0-31.0); Platelet Count 197 10x3/uL (130-400); RBC Distribution Width 18.8 % (11.5-14.5); Red Blood Cell (RBC) Count 2.76 mill/uL (4.70-6.10); White Blood Cell (WBC) Count 16.6 10x3/uL (4.8-10.8)
[2023-04-07 10:10] LABS: Mean Corpuscular Volume 90.9 fl (78.0-98.0)
[2023-04-07 10:22] LABS: Anion Gap 13 mmol/L (10-20); BUN (Urea Nitrogen) 21 mg/dL (8.4-25.7); Calc. Creatinine Clearance 0 mL/min (70-130); Calcium 9.1 mg/dL (7.8-10.44); Carbon Dioxide 27 mmol/L (23-31); Chloride 102 mmol/L (98-107); Estimated GFR 98; Glucose 167 mg/dL (80-115); Potassium 4.7 mmol/L (3.5-5.1); Sodium 137 mmol/L (136-145)
[2023-04-07] MEDS ORDERED: Propofol 500 MG/50 ML VIAL ONE (10:54)
[2023-04-11 10:19] LABS: Actual Bicarbonate (HCO3a) 26.7 mEq/L (22-28); Analyzer IN Cardio OR; Base Excess (BEa) 1.2 mEq/L (-2.0 to +3.0); CO2 Tension 47.1 mmHg (35.0-45.0); Calcium, Ionized (arterial) 1.22 mmol/L (1.12-1.30); Carboxyhemoglobin (COHb) 0.4 gm% (0.0-3.0); Hematocrit-ABG 28 % (42.0-52.0); Hemoglobin (Hb) 9.5 g/dL (14.0-18.0); O2 Tension (PaO2), arterial 407.5 mmHg (> 80.0); Potassium - ABG Lab 4.08 mmol/L (3.70-5.30); pH, Arterial 7.372 (7.35-7.45)
[2023-04-11 10:20] LABS: Actual Bicarbonate (HCO3a) 30.5 mEq/L (22-28); Analyzer IN Cardio OR; Base Excess (BEa) 4.7 mEq/L (-2.0 to +3.0); CO2 Tension 52.2 mmHg (35.0-45.0); Calcium, Ionized (arterial) 1.23 mmol/L (1.12-1.30); Carboxyhemoglobin (COHb) 0.6 gm% (0.0-3.0); Hematocrit-ABG 29 % (42.0-52.0); Hemoglobin (Hb) 9.9 g/dL (14.0-18.0); O2 Tension (PaO2), arterial 403.1 mmHg (> 80.0); Potassium - ABG Lab 4.25 mmol/L (3.70-5.30); pH, Arterial 7.385 (7.35-7.45)
[2023-04-11 10:20] LABS: Actual Bicarbonate (HCO3a) 26.8 mEq/L (22-28); Analyzer IN Cardio OR; Base Excess (BEa) 1.9 mEq/L (-2.0 to +3.0); Carboxyhemoglobin (COHb) 0.8 gm% (0.0-3.0); Hematocrit-ABG 27 % (42.0-52.0); Hemoglobin (Hb) 9.1 g/dL (14.0-18.0); O2 Tension (PaO2), arterial 310.4 mmHg (> 80.0); Potassium - ABG Lab 4.46 mmol/L (3.70-5.30); Puncture Site Arterial Line; pH, Arterial 7.412 (7.35-7.45)
[2023-04-11 10:21] LABS: Puncture Site Arterial Line
[2023-04-11 10:21] LABS: Puncture Site Arterial Line
== END 2023-04-07 11:15 | disposition short-term general hospital (02) ==
LOC: ERS 05:30 → SDC 06:39
PROVIDERS: ADMIT Family Medicine; ATTEND Specialist
PROC: 0BJ08ZZ Inspection of Tracheobronchial Tree, Via Natural or Artificial Opening Endoscopic (ICD-10-PCS; principal; 2023-04-07)
DX: C01 Malignant neoplasm of base of tongue (principal); K14.8 Other diseases of tongue; J98.8 Other specified respiratory disorders; I10 Essential (primary) hypertension; Z91.040 Latex allergy status; Z91.018 Allergy to other foods; Z88.0 Allergy status to penicillin; Z91.013 Allergy to seafood; Z87.891 Personal history of nicotine dependence
CPT/HCPCS: 31622; 36215; 36217; 36222; 36228; 36430; 80048; 80053; 82805; 82962; 85025 ×2; 85384; 85610 ×2; 85730 ×2; 86850; 86900; 86901; 86920; 93005; 94002; 96374; 96375; 99291; C1760; C1769 ×4; C1887 ×4; C1889; C1894; P9016; P9035; P9048; P9059; 36415; 36416; J1644; J2001; J2250; J2704; J7050; J7611; J7620; Q9967